=== PATIENT | male | born 1960 | race Caucasian/White ===

== ENCOUNTER 2020-07-26 07:41 | Emergency (ER) | payer MEDICARE, MEDICAID, SELFPAY ==
[2020-07-26 07:45] VITALS: BP 141/86; PULSE 106; RESP 18; TEMP 36.9; O2SAT 94
[2020-07-26 08:08] VITALS: BP 157/64; PULSE 99; RESP 18; O2SAT 95
--- NOTE | 2020-07-26 08:10 | XR_ITS ---
WS: [id number] Right leg including the tibia and fibula, AP and lateral, 07/26/2020 Clinical Data: trauma Comparison: None. Findings: No new fractures or dislocations are seen. The tibia and fibula are intact. The soft tissues are norm al. There is a healed fracture of the proximal right fibula. There is fragmentation of the lateral tibial plateau from an old injury. The visualized right ankle shows no abnormalities. There is an Achilles spur. The soft tissues are normal. XR/XR tibia fibula RT 2V [id number] Impression: Negative for new tibial or fibular fracture.
--- NOTE | 2020-07-26 08:10 | XR_ITS ---
WS: [id number] Right knee, 3 views, today Clinical Data: trauma Comparison: None. Findings: There is a healed fracture of the proximal right fibula. There is fragmentation of the lateral tibial plateau from an old injury. The patella is intact. No new fractures are seen. The soft tissues are normal. There is medial compartment joint space narro wing. XR/XR knee RT 3V* [id number] Impression: 1. Healed fracture of the proximal right fibula. 2. Fragmentation of the lateral tibial plateau from an old injury. 3. Negative for new injury.
--- NOTE | 2020-07-26 08:13 | XR_ITS ---
WS: [id number] Right elbow, AP and lateral views, 07/26/2020 Clinical Data: trauma Comparison: None. Findings: No new fractures or dislocations are seen. The radial head is normal. The soft tissues are unremarkab le. There are mid shaft plates of the right radius and ulna reducing old fractures XR/XR elbow RT 2V [id number] Impression: Negative right elbow.
--- NOTE | 2020-07-26 08:14 | W.ED.FALL ---
HPI - Fall General: Chief Complaint: Fall Stated Complaint: FALL FROM STANDING, ETOH Time Seen by Provider: 07/26/20 07:42 Source: patient and EMS Mode of arrival: EMS History of Present Illness: HPI Narrative: This is a pleasant 59-year-old male who reports that he was a longtime alcoholic. He went over to spend time with his brother. His brother he reports is also an alcoholic. He reports the only way to get along with his brother is to drink along with him. He relapsed and began drinking bourbon and coke. They started about 7:00 last night. He drank all night and this morning left on foot from his brother's house. He was found by a passersby on the side of the road. The patient had stumbled and then passed out. He had slurred speech on wellbeing check and had abrasions to his right knee and elbow so he was brought to the emergency department. He has become more alert and is laughing and conversing with us. He remembers that it was Friday when he started drinking and he remembers leaving on foot. He does not have any signs of head trauma. He is flexing and extending his arms and legs actively but says the only pain he has is in his right knee area. He reports his last tetanus was a long time ago. Associated symptoms-after fall: Denies abdominal pain, chest pain, headache(s) ( not until tomorrow ), lightheadedness or neck pain Review of Systems General: Reports: 10 or more systems reviewed and unremarkable except in HPI and below Eyes: Reports: eye redness; Denies: yellow eyes ENMT: Reports: hoarseness and dry mouth Card: Reports: edema; Denies: chest pain, palpitations or lightheadedness Resp: Denies: dyspnea GI: Denies: abdominal pain, nausea or vomiting : Denies: flank pain Musc: Reports: extremity swelling (chronic ankle edema b/l) and joint pain (right knee area); Denies: neck pain, back pain, joint swelling, joint redness or limited range of motion Skin/Breast: Reports: other (abrasions right knee and elbow) Neuro: Reports: Slurred speech present; Denies: headache(s) ( not until tomorrow ), numbness in extremities, weakness in extremities or dizziness Physical Exam Const: COMMON NORMALS: patient oriented x3 (person, place, situation), alert and well nourished GENERAL APPEARANCE: cooperative and well developed NUTRITIONAL APPEARANCE: obese ORIENTATION/CONSCIOUSNESS: Yes awake, Yes oriented to person and Yes oriented to place; not confused HENMT: COMMON NORMALS: normocephalic, atraumatic, hearing grossly normal bilaterally, external ears normal and Normal external nose present HEAD & SCALP: normal to inspection, normocephalic and atraumatic; no abrasion, no Granados's sign, no contusion, no hematoma and no laceration FACE & SINUS: normal facial exam and face symmetric NOSE: Normal external nose present EXTERNAL EAR: Yes external ears normal MOUTH: lip normal; no muffled voice Eye: COMMON NORMALS: EOMs intact bilaterally and negative for conjunctivae normal (conjunctival injection) CONJUNCTIVA: No conjunctivae normal (conjunctival injection) SCLERA: sclerae normal EOM: Yes Nystagmus present Neck/C-Spine: COMMON NORMALS: no JVD GENERAL: Yes normal visual inspection, Yes trachea midline, No anterior neck swelling, No tender and No tracheal deviation CERVICAL SPINE: Yes cervical ROM normal, No pain with cervical ROM, No Cervical spine tenderness, No step off deformity, No Paracervical muscle tenderness and No Paracervical spasm Chest: CHEST: No abnormal inspection of the chest, Yes Symmetrical chest wall rise, No crepitus, No localized rib tenderness with anteroposterior compression, No tenderness, No laceration, No abrasion and No Ecchymosis present Resp: COMMON NORMALS: No use of accessory muscles and clear to auscultation bilaterally EFFORT & INSPECTION: Yes able to speak in complete sentences, Yes symmetric chest movement, Yes tachypneic and No Actively coughing AUSCULTATION: clear to auscultation bilaterally, no crackles and no rales Cardio: COMMON NORMALS: no JVD and regular rhythm RATE: tachycardic RHYTHM: regular rhythm PERIPHERAL PULSES: radial pulses present GI: COMMON NORMALS: Soft to palpation INSPECTION: Yes normal to inspection PALPATION: Yes Soft to palpation, No Tenderness to palpation present (GI) and No Guarding due to palpation present (GI) RECTAL EXAM: Yes deferred : COMMON NORMALS: Yes no CVA tenderness BLADDER/KIDNEY EXAM: Yes no CVA tenderness Back/Pelvis: COMMON NORMALS: no CVA tenderness, thoracic and lumbar spine normal to inspection, no thoracic nor lumbar tenderness, thoraco-lumbar ROM normal and straight leg raise negative bilaterally Extremity: COMMON NORMALS: full ROM NARRATIVE EXTREMITY EXAM: LUE: normal RUE: abrasion right elbow without swelling, bony tenderness, or deformity LLE: normal except chronic edema RLE: hematoma mid chin and abrasion over lower knee with tenderness GENERAL: Yes normal exam except as noted Neuro: COMMON NORMALS: patient oriented x3 (person, place, situation), moves all extremities, no focal motor deficits and no sensory deficits noted SENSORIUM/ORIENTATION: Yes alert, Yes oriented to person, Yes oriented to place and Yes other (slurred speech and horizontal nystagmus; no lateralizing s/s) Psych: COMMON NORMALS: mental status grossly normal, Normal thought process present, cooperative and normal affect SPEECH: Yes slurred THOUGHT PROCESS: Normal thought process present Skin: COMMON NORMALS: turgor normal and no jaundice GENERAL SKIN EXAM: turgor normal WOUNDS: Yes wounds noted (R elbow, R knee) Course Vital Signs: Vital signs: Vital Signs Temperature 98.4 F 07/26/20 07:45 Pulse Rate 101 H 07/26/20 09:03 Respiratory Rate 20 H 07/26/20 09:03 Blood Pressure 112/82 07/26/20 09:03 Pulse Oximetry 94 07/26/20 09:03 MDM - Fall MDM Narrative: Medical decision making narrative: Pleasant intoxicated 59 yo m with ground level fall to right elbow and knee. Right elbow appears to be supreficial abrasion, right knee slightly deeper and with hematoma of chin--will get xrays. Head NCAT and mental status suprisingly good for his alcohol intoxication. Will monitor rather than obtain head CT at this time. Update tdap and clean wounds/bandage. Accucheck. Likely will clear for d/c. Xrays reviewed. No acute fx. Patient's wounds bandaged. He's awake, alert, sitting on side of bed. Low suspicion for occult ICH. F/u with Dr Velasquez in one week. Lab Data: Labs: Lab Results 07/26/20 Range/Units 09:21 POC Glucose 105 (70-110) mg/dL Discharge Plan Discharge Patient Disposition: Home Clinical Impression: Alcohol intoxication Qualifiers: Complication of substance-induced condition: with unspecified complication Qualified Code(s): F10.929 - Alcohol use, unspecified with intoxication, unspecified Hematoma of right lower extremity Qualifiers: Encounter type: initial encounter Qualified Code(s): S80.11XA - Contusion of right lower leg, initial encounter Abrasion of knee, right Qualifiers: Encounter type: initial encounter Qualified Code(s): S80.211A - Abrasion, right knee, initial encounter Abrasion of elbow, right Qualifiers: Encounter type: initial encounter Qualified Code(s): S50.311A - Abrasion of right elbow, initial encounter Condition: Stable Discharge Orders: Discharge ED (Routine); Ordered 07/26/20 Ordered By: Lex Wolfe Referrals: Jazmine Rosas MD [Referring] - 1 week Discharge Diet: Advance as tolerated Discharge Activity: Increase activity as tolerated Patient Instructions: Alcohol Abuse, Alcohol Intoxication, Abrasion (ED), Opioid Safety Activity Restrictions/Additional Instructions: Return to ER for seizures, severe headache, confusion, neck stiffness, fever, or worsening symptoms. Coding Level of Care Code ED Voice Writing Reporter for Morris Howard Exam Comprehensive
[2020-07-26 09:03] VITALS: BP 112/82; PULSE 101; RESP 20; O2SAT 94
[2020-07-26] MEDS: tetanus-dipt-pertussis 0.5 mL SDV IM (09:13)
[2020-07-26] MEDS: neomycin-poly-bacitracin oint 28 gm 1 APPLIC TOPICAL (09:15)
[2020-07-26 09:23] LABS: Glucose Point of Care 105 mg/dL (70-110)
[2020-07-26 10:38] VITALS: BP 125/88; PULSE 106; RESP 18; TEMP 37.1; O2SAT 94
--- NOTE | 2020-07-26 10:41 | PC.NURSE ---
Trying to find family to contact about picking up pt. While asking about rides and number. Pt becomes argumentative and LOUD. Pt was demeaning to staff. Security was called and helped pt to [place] after signing Discharge papers.
== END 2020-07-26 10:44 | disposition home or self-care (01) ==
PROVIDERS: Emergency Provider Emergency Medicine
DX: F10.929 Alcohol use, unspecified with intoxication, unspecified (principal); S80.11XA Contusion of right lower leg, initial encounter; S80.211A Abrasion, right knee, initial encounter; S50.311A Abrasion of right elbow, initial encounter; W18.40XA Slipping, tripping and stumbling without falling, unspecified, initial encounter; Z23 Encounter for immunization
CPT/HCPCS: 36416; 73070; 73562; 73590; 82962; 90471; 90715; 99283